=== PATIENT | female | born 1960 | race Hispanic/Latino ===

== ENCOUNTER → 2018-07-14 | Outpatient (CLI) | payer MEDICAID ==
[~2018-07-14] MED LIST: AMLO5TAB7 PO; AMOX-429 PO; CORTSOL OT; D-ME118S47 PO; LISI1TAB13 PO; PROM25TA7 PO; SULF1TAB42 PO; TRAM50TA2 PO; TRAM50TA4 PO
== END | disposition home or self-care (01) ==
LOC: SHCH 10:02
PROVIDERS: ATTEND Internal Medicine Cardiovascular Disease
DX: R94.31 Abnormal electrocardiogram [ECG] [EKG] (principal); E65 Localized adiposity; I51.7 Cardiomegaly
CPT/HCPCS: 93306